=== PATIENT | male | born 1995 | race Caucasian/White ===

== ENCOUNTER 2016-09-01 20:13 | Emergency (ER) | payer SELFPAY ==
[~2016-09-01] VITALS: Ht 185.4 cm; Wt 80.0 kg
[2016-09-01] MEDS ORDERED: SODIUM CHLORIDE 0.9% 1,000ML IVBOLUS ONE (21:00)
[2016-09-01 21:03] LABS: HEMOGLOBIN 15.8 g/dL (13.7-18.0)
[2016-09-01 21:14] LABS: BLOOD UREA NITROGEN 15 mg/dL (7-18)
[2016-09-01] MEDS ORDERED: QUET400T4 PO (21:20)
[2016-09-01 21:24] LABS: ASPARTATE AMINO TRANSFERASE 36 U/L (15-37)
[2016-09-01 21:25] LABS: ACETAMINOPHEN < 2 mcg/mL (10-30)
[2016-09-01 22:32] VITALS: BP 125/79
== END 2016-09-01 22:34 | disposition home or self-care (01) ==
LOC: ED 22:28
DX: F23 Brief psychotic disorder (principal); F31.9 Bipolar disorder, unspecified; F10.129 Alcohol abuse with intoxication, unspecified; F12.10 Cannabis abuse, uncomplicated; F15.10 Other stimulant abuse, uncomplicated
CPT/HCPCS: 36415; 80053; 80307; 80329; 83735; 84443; 85025; 99284; G0480